=== PATIENT | male | born 1980 | race Caucasian/White ===

== ENCOUNTER 2016-12-15 16:08 | Inpatient (IN) | payer OTHER ==
[~2016-12-15] VITALS: Ht 175.3 cm; Wt 86.8 kg
[2016-12-15] MEDS ORDERED: PAXIL40 MG PO (16:16)
[2016-12-15 17:03] LABS: BASO % 0.2 % (0.0-2.0); EOS # 0.1 (0.0-0.7); EOS % 0.5 % (0-4.0); GRAN # 11.6 (1.4-6.5); GRAN % 82.3 % (42.2-75.2); HEMATOCRIT 44.4 % (42.0-52.0); HEMOGLOBIN 15.5 g/dl (13.5-18.0); LYMPH # 1.3 (1.2-3.4); LYMPH % 9.3 % (20.0-51.0); MEAN CELL VOLUME 91 fl (80.0-100.0); MEAN CORPUSCULAR HEMOGLOBIN 32 pg (27.0-31.0); MEAN CORPUSCULAR HGB CONC 35 g/dl (33.0-37.0); MEAN PLATELET VOLUME 9.4 fl (7.4-10.4); MONO % 7.3 % (1.7-9.3); PLATELET COUNT 273 K/mm3 (130-400); RED BLOOD COUNT 4.87 M/mm3 (4.20-5.60); REDCELL DISTRIBUTION WIDTH-CV 12.6 % (11.5-14.5); WHITE BLOOD COUNT 14.1 K/mm3 (4.8-10.8)
[2016-12-15 17:16] LABS: ADJUSTED CALCIUM 9.3 mg/dL (8.4-10.2); ALBUMIN 4.5 gm/dL (3.5-5.0); BILIRUBIN,TOTAL 0.7 mg/dL (0.0-1.0); CALCIUM 9.7 mg/dL (8.4-10.2); CREATININE, serum 0.88 mg/dL (0.66-1.25); POTASSIUM 3.6 mmol/L (3.4-5.0); TOTAL PROTEIN 7.4 gm/dL (6.4-8.2)
[2016-12-15 19:58] VITALS: BP 119/72; PULSE 80; TEMP 100
[2016-12-15 23:38] VITALS: BP 119/57; PULSE 78; TEMP 98.9
[2016-12-16 03:43] VITALS: BP 105/55; PULSE 81; TEMP 99.1
[2016-12-16 07:16] LABS: BASO % 0.3 % (0.0-2.0); EOS % 0.3 % (0-4.0); GRAN # 7.8 (1.4-6.5); HEMATOCRIT 42.4 % (42.0-52.0); HEMOGLOBIN 14.6 g/dl (13.5-18.0); LYMPH # 1.3 (1.2-3.4); LYMPH % 12.5 % (20.0-51.0); MEAN CELL VOLUME 93 fl (80.0-100.0); MEAN CORPUSCULAR HEMOGLOBIN 32 pg (27.0-31.0); MEAN CORPUSCULAR HGB CONC 34 g/dl (33.0-37.0); MEAN PLATELET VOLUME 9.7 fl (7.4-10.4); MONO % 9.5 % (1.7-9.3); PLATELET COUNT 240 K/mm3 (130-400); RED BLOOD COUNT 4.54 M/mm3 (4.20-5.60); REDCELL DISTRIBUTION WIDTH-CV 12.8 % (11.5-14.5); WHITE BLOOD COUNT 10.2 K/mm3 (4.8-10.8)
[2016-12-16 07:28] LABS: CALCIUM 8.5 mg/dL (8.4-10.2); CREATININE, serum 1.03 mg/dL (0.66-1.25); POTASSIUM 4.1 mmol/L (3.4-5.0)
[2016-12-16 07:53] VITALS: BP 123/80; PULSE 72; TEMP 99.2
[2016-12-16 11:29] VITALS: BP 111/62; PULSE 73; TEMP 98.9
[2016-12-16 15:30] VITALS: BP 115/67; PULSE 82; TEMP 99
[2016-12-16 19:35] VITALS: BP 122/54; PULSE 74; TEMP 98.4
[2016-12-17] VITALS (12 sets, daily range): BP systolic 91–121; BP diastolic 53–74; PULSE 58–83; TEMP 97.9–98.9
[2016-12-17 07:06] LABS: BASO % 0.4 % (0.0-2.0); EOS # 0.1 (0.0-0.7); EOS % 1.1 % (0-4.0); GRAN # 4.9 (1.4-6.5); GRAN % 66.8 % (42.2-75.2); HEMATOCRIT 44.5 % (42.0-52.0); LYMPH # 1.7 (1.2-3.4); LYMPH % 22.8 % (20.0-51.0); MEAN CELL VOLUME 95 fl (80.0-100.0); MEAN CORPUSCULAR HEMOGLOBIN 32 pg (27.0-31.0); MEAN CORPUSCULAR HGB CONC 34 g/dl (33.0-37.0); MEAN PLATELET VOLUME 9.8 fl (7.4-10.4); MONO # 0.6 (0.1-0.6); MONO % 8.5 % (1.7-9.3); PLATELET COUNT 247 K/mm3 (130-400); RED BLOOD COUNT 4.71 M/mm3 (4.20-5.60); REDCELL DISTRIBUTION WIDTH-CV 12.6 % (11.5-14.5); WHITE BLOOD COUNT 7.3 K/mm3 (4.8-10.8)
[2016-12-17 07:27] LABS: CALCIUM 8.7 mg/dL (8.4-10.2); CREATININE, serum 0.96 mg/dL (0.66-1.25); POTASSIUM 3.7 mmol/L (3.4-5.0)
[2016-12-18 03:32] VITALS: BP 122/72; PULSE 91; TEMP 97.2
[2016-12-18 07:50] VITALS: BP 132/79; PULSE 64; TEMP 97.2
[2016-12-18 12:16] VITALS: BP 122/74; PULSE 77; TEMP 97.4
[2016-12-18 15:27] VITALS: BP 93/53; PULSE 68; TEMP 97.9
[2016-12-18] MEDS ORDERED: NORCO 325 MG-51 TAB PO (16:14)
[2016-12-18 19:49] VITALS: BP 118/76; PULSE 69; TEMP 98.2
[2016-12-18 23:40] VITALS: BP 116/80; PULSE 56; TEMP 97.7
[2016-12-19 03:26] VITALS: BP 135/84; PULSE 63; TEMP 97.6
[2016-12-19 07:32] VITALS: BP 118/71; PULSE 85
[2016-12-19] MEDS ORDERED: CIPRO750 MG PO (10:19)
[2016-12-19 11:26] VITALS: BP 146/85; PULSE 71; TEMP 97.2
[2016-12-19] MEDS ORDERED: PRINCIPEN500 MG PO (14:12)
== END 2016-12-19 14:38 | disposition home or self-care (01) | DRG 581 ==
LOC: COL.ER 16:08 → MEDICAL 17:46
PROVIDERS: Emergency Medicine; Family Medicine; Nurse Practitioner Family; Surgery
PROC: 0KBS0ZZ Excision of Right Lower Leg Muscle, Open Approach (ICD-10-PCS; principal; 2016-12-17 12:00)
DX: L03.115 Cellulitis of right lower limb (principal); S80.11XD Contusion of right lower leg, subsequent encounter; Y35.0 Legal intervention involving firearm discharge; Z87.442 Personal history of urinary calculi
CPT/HCPCS: 99222-AI; 99232-AI; 99233-AI; 99239; J0690; J0696; J1100; J1170; J1644; J1885; J2175; J2405; J2543; J2704; J3010; J3370; J7030; J7050; J7120; Q9967